=== PATIENT | male | born 1995 | race Caucasian/White ===

== ENCOUNTER 2021-11-10 18:23 | Emergency (ER) | payer BC, OTHER ==
[2021-11-10] MEDS ORDERED: Hydromorphone 1 mg/ml Injection IV ONE (18:51)
[2021-11-10] MEDS ORDERED: Zofran 4 MG/2 ML VIAL IV ONE (18:51)
[2021-11-10] MEDS ORDERED: Sodium Chloride 0.9% 1000 ML 1,000 ML IV STA (18:51)
--- NOTE | 2021-11-10 18:51 | ERPHSYRPT ---
- History of Present Illness Time Seen by Provider: 11/10/21 18:51 Historian: patient Exam Limitations: no limitations Patient Subjective Stated Complaint: PT REPORTS ABDOMINAL PAIN TO RIGHT LOWER QUADRANT THAT STARTED TODAY 11/10/21 AND NAUSEA Triage Nursing Assessment: PT REPORTS CONSTANT ABDOMINAL PAIN TO RLQ, TENDER WITH PALPATION, PT REPORTS NAUSEA BUT DENIES VOMITING, BOWEL MOVEMENT TODAY. PT STATES HE HAS BEEN HAVING HEADACHES INTERMITTENTLY OVER THE LAST WEEK AND THAT HE WAS EXPOSED TO COVID POSITIVE PERSONS AT WORK 7 DAYS AGO. PT STATES HE WAS TESTED FOR COVID 19 AT [facility] TODAY BUT STATES RESULTS WONT BE IN FOR 2-5 BUSINESS DAYS. Physician History: This is a 26-year-old white male patient of Dr. Leone who presents with right lower quadrant abdominal pain that began this morning and has worsened throughout the day. He has had nausea but no vomiting. He has no diarrhea symptoms. Patient has never had anything like this before. He has been exposed individuals with COVID-positive infection. He has had intermittent headaches over the last week. He denies cough. He denies neck pain. He has not had a fever. Patient has never had an abdominal surgery in the past. Activities at Onset: none Quality: aching Abdominal Pain Onset Location: RLQ Severity of Pain-Max: moderate Severity of Pain-Current: moderate Modifying Factors: Improves With: nothing Associated Symptoms: nausea Previous symptoms: no prior history Allergies/Adverse Reactions: amoxicillin [Amoxicillin] Adverse Reaction (Mild, Verified 11/10/21 18:40) Diarrhea Home Medications: No Home Meds [No Home Meds] 1 [facility] 04/03/15 [History] Hx Tetanus, Diphtheria Vaccination/Date Given: No Hx Influenza Vaccination/Date Given: No Hx Pneumococcal Vaccination/Date Given: No Immunizations Up to Date: No Travel Risk - International Travel Have you traveled outside of the country in past 3 weeks: No - Coronavirus Screening Are you exhibiting any of the following symptoms?: Yes Symptoms: Headaches/Body Aches/Fatigue Close contact with a COVID-19 positive Pt in past 14-21 Days: Yes - Vaccine Status Have you recieved a Covid-19 vaccination: No - Review of Systems Constitutional: No Symptoms Eyes: No Symptoms Ears, Nose, & Throat: No Symptoms Respiratory: No Symptoms Cardiac: No Symptoms Abdominal/Gastrointestinal: Abdominal Pain (Lower quadrant), Nausea, No Vomiting Genitourinary Symptoms: No Symptoms Musculoskeletal: No Symptoms Skin: No Symptoms Neurological: No Symptoms Psychological: No Symptoms Endocrine: No Symptoms Hematologic/Lymphatic: No Symptoms Immunological/Allergic: No Symptoms All Other Systems: Reviewed and Negative - Past Medical History Pertinent Past Medical History: Yes Neurological History: No Pertinent History ENT History: No Pertinent History Cardiac History: No Pertinent History Respiratory History: No Pertinent History Endocrine Medical History: No Pertinent History Musculoskeletal History: No Pertinent History GI Medical History: No Pertinent History History: No Pertinent History Psycho-Social History: No Pertinent History Male Reproductive Disorders: No Pertinent History Other Medical History: ANGER DISORDER - Past Surgical History Past Surgical History: No Neuro Surgical History: No Pertinent History Cardiac: No Pertinent History Respiratory: No Pertinent History Gastrointestinal: No Pertinent History Genitourinary: No Pertinent History Musculoskeletal: No Pertinent History Male Surgical History: No Pertinent History - Social History Smoking Status: Former smoker How long have you smoked: 5 yrs Exposure to second hand smoke: Yes Drug Use: none Patient Lives Alone: No - Nursing Vital Signs Nursing Vital Signs: Initial Vital Signs Temperature 97.9 F 11/10/21 18:28 Pulse Rate 62 11/10/21 18:28 Respiratory Rate 15 11/10/21 18:28 Blood Pressure 120/68 11/10/21 18:28 O2 Sat by Pulse Oximetry 98 11/10/21 18:28 Pain Scale Pain Intensity 3 - Physical Exam General Appearance: no apparent distress, alert, anxiety Eye Exam: PERRL/EOMI Ears, Nose, Throat Exam: normal ENT inspection, moist mucous membranes Neck Exam: normal inspection, non-tender, supple, full range of motion Respiratory Exam: normal breath sounds, lungs clear, airway intact, No chest tenderness, No respiratory distress Cardiovascular Exam: regular rate/rhythm, normal heart sounds, normal peripheral pulses Gastrointestinal/Abdomen Exam: soft, normal bowel sounds, tenderness (Right lower quadrant), guarding (Right lower quadrant) Rectal Exam: not done Back Exam: normal inspection, normal range of motion, No CVA tenderness, No vertebral tenderness Extremity Exam: normal inspection, normal range of motion, pelvis stable Neurologic Exam: alert, oriented x 3, cooperative, drug 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 II-XII nml as tested, normal mood/affect, nml cerebellar function, nml station & gait, sensation nml Skin Exam: normal color, warm, dry Lymphatic Exam: No adenopathy SpO2 Interpretation: normal SpO2: 98 O2 Delivery: Room Air - Course Nursing assessment & vital signs reviewed: Yes Ordered Tests: Active Orders 24 hr Category Date Time Status IV Insertion STAT Care 11/10/21 18:51 Active ABDOMEN AND PELVIS W/0 CONTRAS [CT] Stat Exams 11/10/21 18:53 Taken AMYLASE Stat Lab 11/10/21 18:30 Completed CBC W DIFF Stat Lab 11/10/21 18:30 Completed CMP Stat Lab 11/10/21 18:30 Completed LIPASE Stat Lab 11/10/21 18:30 Completed UA W/RFX CULTURE Stat Lab 11/10/21 18:55 Completed Medication Summary Discontinued Medications Generic Name Dose Route Start Last Admin Trade Name Freq PRN Reason Stop Dose Admin Hydromorphone HCl 1 mg 11/10/21 18:51 11/10/21 18:59 Hydromorphone 1 Mg/1ml Inj 1 Mg/Ml Syringe IV 11/10/21 18:52 1 mg STAT ONE Administration Hydromorphone HCl Confirm 11/10/21 18:56 Hydromorphone 1 Mg/1ml Inj 1 Mg/Ml Syringe Administered 11/10/21 18:57 Dose 1 mg .ROUTE .STK-MED ONE Sodium Chloride 1,000 mls @ 999 mls/hr 11/10/21 18:51 11/10/21 19:59 Sodium Chloride 0.9% 1000 Ml IV 11/10/21 19:51 Infused .Q1H1M STA Infusion Sodium Chloride Confirm 11/10/21 18:56 Sodium Chloride 0.9% 1000 Ml Administered 11/10/21 18:57 Dose 1,000 mls @ ud .ROUTE .STK-MED ONE Ondansetron HCl 4 mg 11/10/21 18:51 11/10/21 18:59 Ondansetron Hcl 4 Mg/2 Ml Vial IV 11/10/21 18:52 4 mg STAT ONE Administration Ondansetron HCl Confirm 11/10/21 18:56 Ondansetron Hcl 4 Mg/2 Ml Vial Administered 11/10/21 18:57 Dose 4 mg .ROUTE .STK-MED ONE Lab/Rad Data: Laboratory Result Diagrams 11/10/21 18:30 11/10/21 18:30 Laboratory Results 07/25/22 07/25/22 07/25/22 Range/Units 19:10 18:55 18:30 WBC (4.0-10.5) x10^3/uL RBC (4.1-5.6) x10^6/uL Hgb (12.5-18.0) g/dL Hct (42-50) % MCV (78-100) fL MCH (26-32) pg MCHC (32-36) g/dL RDW (11.5-14.0) % Plt Count (150-450) x10^3/uL MPV (7.5-11.0) fL Gran % (36.0-66.0) % Immature Gran % (Auto) (0.00-0.4) % Nucleat RBC Rel Count (0.00-0.1) % Eos # (Auto) (0-0.5) x10^3/uL Immature Gran # (Auto) (0.00-0.03) x10^3u/L Absolute Lymphs (auto) (1.0-4.6) x10^3/uL Absolute Monos (auto) (0.0-1.3) x10^3/uL Absolute Nucleated RBC (0.00-0.01) x10^3u/L Lymphocytes % (24.0-44.0) % Monocytes % (0.0-12.0) % Eosinophils % (0.00-5.0) % Basophils % (0.0-0.4) % Absolute Granulocytes (1.4-6.9) x10^3/uL Basophils # (0-0.4) x10^3/uL Sodium 139 (137-145) mmol/L Potassium 3.9 (3.5-5.1) mmol/L Chloride 102 (98-107) mmol/L Carbon Dioxide 28 (22-30) mmol/L Anion Gap 12.4 (5-15) MEQ/L BUN 8 L (9-20) mg/dL Creatinine 0.95 (0.66-1.25) mg/dL Estimated GFR > 60.0 ML/MIN Glucose 105 (74-106) mg/dL Calcium 9.0 (8.4-10.2) mg/dL Total Bilirubin 0.40 (0.2-1.3) mg/dL AST 38 (17-59) U/L ALT 44 (0-50) U/L Alkaline Phosphatase 73 (38-126) U/L Serum Total Protein 7.9 (6.3-8.2) g/dL Albumin 4.3 (3.5-5.0) g/dL Amylase 77 (30-110) U/L Lipase 73 (23-300) U/L Urinalys Dipstick Clnc MAIN LAB Urine Color YELLOW (YELLOW) Urine Appearance CLEAR (CLEAR) Urine pH 7.0 (5-6) Ur Specific Lucas 1.025 (1.005-1.025) POC Urine Protein Conf NEGATIVE (Negative) Urine Ketones NEGATIVE (NEGATIVE) Urine Nitrite NEGATIVE (NEGATIVE) Urine Bilirubin NEGATIVE (NEGATIVE) Urine Urobilinogen 0.2 (0-1) mg/dL Urine Leukocytes NEGATIVE (NEGATIVE) Urine WBC (Auto) 0-2 (0-5) /HPF Urine RBC (Auto) 0-2 (0-2) /HPF Urine RBC NEGATIVE (0-5) Rancho/ul Ur Culture Indicated? NO Urine Glucose NEGATIVE (NEGATIVE) mg/dL Influenza Type A Ag NEGATIVE (NEGATIVE) Influenza Type B Ag NEGATIVE (NEGATIVE) RSV (PCR) NEGATIVE (Negative) SARS-CoV-2 (PCR) NEGATIVE (NEGATIVE) 11/10/21 Range/Units 18:30 WBC 6.0 (4.0-10.5) x10^3/uL RBC 4.44 (4.1-5.6) x10^6/uL Hgb 13.9 (12.5-18.0) g/dL Hct 40.6 L (42-50) % MCV 91.4 (78-100) fL MCH 31.3 (26-32) pg MCHC 34.2 (32-36) g/dL RDW 12.6 (11.5-14.0) % Plt Count 259 (150-450) x10^3/uL MPV 9.7 (7.5-11.0) fL Gran % 56.0 (36.0-66.0) % Immature Gran % (Auto) 0.3 (0.00-0.4) % Nucleat RBC Rel Count 0.0 (0.00-0.1) % Eos # (Auto) 0.13 (0-0.5) x10^3/uL Immature Gran # (Auto) 0.02 (0.00-0.03) x10^3u/L Absolute Lymphs (auto) 2.06 (1.0-4.6) x10^3/uL Absolute Monos (auto) 0.39 (0.0-1.3) x10^3/uL Absolute Nucleated RBC 0.00 (0.00-0.01) x10^3u/L Lymphocytes % 34.2 (24.0-44.0) % Monocytes % 6.5 (0.0-12.0) % Eosinophils % 2.2 (0.00-5.0) % Basophils % 0.8 (0.0-0.4) % Absolute Granulocytes 3.37 (1.4-6.9) x10^3/uL Basophils # 0.05 (0-0.4) x10^3/uL Sodium (137-145) mmol/L Potassium (3.5-5.1) mmol/L Chloride (98-107) mmol/L Carbon Dioxide (22-30) mmol/L Anion Gap (5-15) MEQ/L BUN (9-20) mg/dL Creatinine (0.66-1.25) mg/dL Estimated GFR ML/MIN Glucose (74-106) mg/dL Calcium (8.4-10.2) mg/dL Total Bilirubin (0.2-1.3) mg/dL AST (17-59) U/L ALT (0-50) U/L Alkaline Phosphatase (38-126) U/L Serum Total Protein (6.3-8.2) g/dL Albumin (3.5-5.0) g/dL Amylase (30-110) U/L Lipase (23-300) U/L Urinalys Dipstick Clnc Urine Color (YELLOW) Urine Appearance (CLEAR) Urine pH (5-6) Ur Specific Lucas (1.005-1.025) POC Urine Protein Conf (Negative) Urine Ketones (NEGATIVE) Urine Nitrite (NEGATIVE) Urine Bilirubin (NEGATIVE) Urine Urobilinogen (0-1) mg/dL Urine Leukocytes (NEGATIVE) Urine WBC (Auto) (0-5) /HPF Urine RBC (Auto) (0-2) /HPF Urine RBC (0-5) Rancho/ul Ur Culture Indicated? Urine Glucose (NEGATIVE) mg/dL Influenza Type A Ag (NEGATIVE) Influenza Type B Ag (NEGATIVE) RSV (PCR) (Negative) SARS-CoV-2 (PCR) (NEGATIVE) - Progress Progress: improved, pain not gone completely, re-examined Progress Note: 11/10/21 20:22 CAT scan of the abdomen pelvis without contrast shows a normal appendix. There is diverticulosis present. No acute intra-abdominal or intrapelvic abnormalities. Counseled pt/family regarding: lab results, diagnosis, need for follow-up, rad results - Departure Departure Disposition: Home Clinical Impression: Abdominal pain Condition: Stable Critical Care Time: No Referrals: MARLENY ZHOU [ACTIVE STAFF] - Follow up/PCP as directed Additional Instructions: Drink plenty of clear liquids. Do not advance your diet until you are jen ating clear liquids well. Follow-up with your primary care physician for further evaluation and management. Prescriptions: Ondansetron ODT 4 MG [Zofran Odt 4 mg] 4 mg PO Q6H PRN PRN #10 tablet PRN Reason: Vomiting
[2021-11-10] MEDS ORDERED: Zofran 4 MG/2 ML VIAL ONE (18:56)
[2021-11-10] MEDS ORDERED: Hydromorphone 1 mg/ml Injection ONE (18:56)
[2021-11-10] MEDS ORDERED: Sodium Chloride 0.9% 1000 ML 1,000 ML ONE (18:56)
[2021-11-10 18:58] LABS: Absolute Neutrophil Ct (ANC) 3.37 x10^3/uL (1.4-6.9); Basophil (Absolute #) 0.05 x10^3/uL (0-0.4); Eosinophil % 2.2 % (0.00-5.0); Eosinophil (Absolute #) 0.13 x10^3/uL (0-0.5); Hematocrit 40.6 % (42-50); Hemoglobin 13.9 g/dL (12.5-18.0); Lymphocyte (Absolute #) 2.06 x10^3/uL (1.0-4.6); Lymphocytes % 34.2 % (24.0-44.0); Mean Cell Volume 91.4 fL (78-100); Mean Corpuscular Hemoglobin 31.3 pg (26-32); Mean Corpuscular Hgb Concent. 34.2 g/dL (32-36); Mean Platelet Volume 9.7 fL (7.5-11.0); Monocyte (Absolute #) 0.39 x10^3/uL (0.0-1.3); Monocytes % 6.5 % (0.0-12.0); Platelet Count 259 x10^3/uL (150-450); Red Blood Count 4.44 x10^6/uL (4.1-5.6); Red Cell Distribution Width 12.6 % (11.5-14.0)
[2021-11-10 19:05] LABS: ALBUMIN 4.3 g/dL (3.5-5.0); ALKALINE PHOSPHATASE 73 U/L (38-126); AMYLASE 77 U/L (30-110); ANION GAP 12.4 MEQ/L (5-15); BLOOD UREA NITROGEN 8 mg/dL (9-20); CHLORIDE 102 mmol/L (98-107); Carbon Dioxide 28 mmol/L (22-30); Creatinine 1 0.95 mg/dL (0.66-1.25); EST GLOMERULAR FILTRATION RATE > 60.0 ML/MIN; Glucose 105 mg/dL (74-106); LIPASE 73 U/L (23-300); Potassium 3.9 mmol/L (3.5-5.1); SGOT/AST 38 U/L (17-59); SGPT/ALT 44 U/L (0-50); SODIUM 139 mmol/L (137-145); Total Protein 7.9 g/dL (6.3-8.2)
[2021-11-10 19:10] LABS: RBC 0-2 /HPF (0-2); WBC 0-2 /HPF (0-5)
[2021-11-10 19:12] LABS: Appearance CLEAR (CLEAR); Bilirubin NEGATIVE (NEGATIVE); Glucose NEGATIVE (NEGATIVE); Ketones NEGATIVE (NEGATIVE); Nitrite NEGATIVE (NEGATIVE); Protein,Urine Dip NEGATIVE (Negative); RBC NEGATIVE Ery/ul (0-5); Specific Gravity 1.025 (1.005-1.025); Urine Cultured Indicated? NO; Urobilinogen 0.2 mg/dL (0-1)
[2021-11-10 19:13] LABS: Dipstick done @ ? MAIN LAB
[2021-11-10 19:43] LABS: INFLUENZA A NEGATIVE (NEGATIVE); INFLUENZA B NEGATIVE (NEGATIVE); RESPIRATORY SYNCTIAL VIRUS NEGATIVE (Negative); SARS-CoV-2 Xpert Express NEGATIVE (NEGATIVE)
[2021-11-10 20:55] VITALS: BP 112/68; PULSE 56; O2SAT 99
--- NOTE | 2021-11-11 16:00 | XRAY ---
Exam: CT of the abdomen and pelvis without IV contrast from 11/10/2021. CTDI: 10.56 mGy Comparison: CT of the abdomen and pelvis with IV contrast from 04/18/2012. Indication: Right lower quadrant abdominal pain; nausea. Technique: Non-IV contrast axial images were obtained through the abdomen and pelvis. Reconstructed coronal and sagittal images were created and reviewed. Findings: The visualized lung bases are clear except for minimal posterior dependent compression atelectasis at the right lung base. Assessment of the solid organs is limited without the use of IV contrast. Moderate food and perhaps some secretions are seen within the stomach lumen. The liver and spleen appear of normal size and uniform attenuation. No intrahepatic biliary duct distention is seen. The gallbladder demonstrates average distention and reveals no dense calcifications within it. The pancreas and adrenal glands appear unremarkable. The kidneys are of normal size and reveal no renal calculi or hydronephrosis. The ureters appear of normal diameter and reveal no definite ureterolith. No gross renal mass is seen. The abdominal aorta appears of normal diameter. No abnormal retroperitoneal lymphadenopathy is seen. There is no bowel containing ventral hernia or free intraperitoneal air. There is minimal protrusion of intra-abdominal fat into the subcutaneous fat at the level the umbilicus on midline sagittal image #105. Scattered stool is seen throughout the colon. Mild scattered colonic diverticulosis is seen without evidence of diverticulitis. The appendix is seen within the right lower quadrant and appears normal. The pelvis reveals an unremarkable appearance of the urinary bladder, seminal vesicles, and prostate gland. Some small scattered calcified phleboliths are seen bilaterally within the lower pelvis. The inguinal canals and femoral regions appear unremarkable. No other evidence of pelvic mass, abnormal pelvic lymphadenopathy, or free intraperitoneal fluid is seen. The skeleton reveals bilateral L5 spondylolysis with minimal 1-2 mm anterior spondylolisthesis of L5 over S1. No fracture or other aggressive bone lesion is seen. Impression: 1. The appendix is seen within the right lower quadrant and appears normal. No findings of appendicitis are seen. 2. I see no other evidence of acute intra-abdominal or pelvic process. 3. Scattered mild colonic diverticulosis without evidence of acute diverticulitis. 4. 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
== END 2021-11-10 21:02 | disposition home or self-care (01) ==
LOC: ED 18:23
DX: R10.31 Right lower quadrant pain (principal); R11.0 Nausea; R51.9 Headache, unspecified; Z28.310 Unvaccinated for COVID-19; Z20.822 Contact with and (suspected) exposure to COVID-19
CPT/HCPCS: 0241U; 36000; 36415; 74176; 80053; 81015; 82150; 83690; 85025; 96374; 96375; 99284; J1170; J2405

== ENCOUNTER 2021-11-18 05:49 | Day surgery (SDC) | payer BC, OTHER ==
[2021-11-18] MEDS ORDERED: Lactated Ringers 1,000 ML IV SCH (06:30)
[2021-11-18] MEDS ORDERED: DIPRIVAN 200 MG/20 ML IV ONE (07:26)
[2021-11-18] MEDS ORDERED: Xylocaine-Mpf 2% 5 Ml Vial ONE (07:26)
[2021-11-18 08:55] VITALS: O2SAT 97
[2021-11-18 09:11] VITALS: BP 113/65; PULSE 49
--- NOTE | 2021-11-18 09:26 | OP ---
SURGERY DATE/TIME: 11/18/2021 0725 PREOPERATIVE DIAGNOSIS: Rectal bleeding. POSTOPERATIVE DIAGNOSIS: Normal colon, mild hemorrhoids. PROCEDURE: Colonoscopy. SURGEON: Dr. Je Leone. ANESTHESIA: MAC. Medications given by anesthesia department. HISTORY: The patient is a 26-year-old white male patient presenting now for colonoscopic evaluation. The patient reports that he has had several episodes of rectal bleeding over the last few weeks and the patient was felt the need to have endoscopic evaluation. The patient was described the risks of the procedure including the risk of perforation, phlebitis, untoward reaction to medication, bleeding and missed lesions. The patient verbalized his understanding and desired to have the procedure performed. DESCRIPTION OF PROCEDURE: The patient was given the medications by the anesthesia department. He had continuous pulse oximetry, ECG monitoring, intermittent blood pressure monitoring during the examination. He was placed in the left lateral decubitus position. A digital rectal examination was performed and revealed mild hemorrhoids, no palpable masses, normal sphincter tone and normal prostate. The flexible Olympus pediatric colonoscope was used to intubate the rectum. A view of the colon was developed sequentially to the cecum including a short distance in the terminal ileum. Upon insertion and withdrawal, including a retroflex view in the rectum, no mucosal lesions were otherwise noted. The scope was removed from the patient who tolerated the procedure well and was sent back to OP recovery in good condition. The prep was noted to be fair to good.
== END 2021-11-18 09:13 | disposition home or self-care (01) ==
LOC: SDC 05:49
PROVIDERS: ATTEND Family Medicine
DX: K64.9 Unspecified hemorrhoids (principal); K62.5 Hemorrhage of anus and rectum
CPT/HCPCS: J2704

== ENCOUNTER 2022-01-25 17:10 | Emergency (ER) | payer BC, OTHER ==
[2022-01-25 17:46] VITALS: BP 132/89; PULSE 80; O2SAT 98
--- NOTE | 2022-01-25 17:51 | ERPHSYRPT ---
- History of Present Illness Time Seen by Provider: 01/25/22 17:48 Source: patient Exam Limitations: no limitations Patient Subjective Stated Complaint: "I punched a wall last night and have right hand and wrist pain" Triage Nursing Assessment: AAox3, walked in, c/o pain and swelling to right hand/wrist s/p punching wall last night. Denies other injuries, pleasant mood. Physician History: pt states did not hit any person and has no cuts on exam at knuckles. tender swollen right 4th and 5th MCPs and wrist. No other complaints of injuries. full ROM all ext.otherwise. chest and abd all nontender spine and head all nontender. No neuro findings. N/V intact. Occurred: just prior to arrival Method of Injury: direct blow Quality: constant Severity of Pain-Max: moderate Severity of Pain-Current: moderate Modifying Factors: Improves With: immobilization, movement Associated Symptoms: none Allergies/Adverse Reactions: amoxicillin [Amoxicillin] Adverse Reaction (Mild, Verified 11/18/21 06:28) Diarrhea Home Medications: No Reportable Medications [No Reported Medications] 11/17/21 [History] Hx Tetanus, Diphtheria Vaccination/Date Given: No Hx Influenza Vaccination/Date Given: No Hx Pneumococcal Vaccination/Date Given: No Immunizations Up to Date: Yes Travel Risk - International Travel Have you traveled outside of the country in past 3 weeks: No - Coronavirus Screening Are you exhibiting any of the following symptoms?: No Close contact with a COVID-19 positive Pt in past 14-21 Days: No - Vaccine Status Have you recieved a Covid-19 vaccination: No - Review of Systems Constitutional: No Fever, No Chills Eyes: No Symptoms Ears, Nose, & Throat: No Symptoms Respiratory: No Cough, No Dyspnea Cardiac: No Chest Pain, No Edema, No Syncope Abdominal/Gastrointestinal: No Abdominal Pain, No Nausea, No Vomiting, No Diarrhea Genitourinary Symptoms: No Dysuria Musculoskeletal: Injury, Joint Pain, Joint Swelling, No Back Pain, No Neck Pain Skin: No Symptoms, No Rash, No Skin Lesions Neurological: No Dizziness, No Focal Weakness, No Sensory Changes Psychological: No Symptoms Endocrine: No Symptoms Hematologic/Lymphatic: No Symptoms Immunological/Allergic: No Symptoms All Other Systems: Reviewed and Negative - Past Medical History Pertinent Past Medical History: Yes Neurological History: No Pertinent History ENT History: No Pertinent History Cardiac History: No Pertinent History Respiratory History: No Pertinent History Endocrine Medical History: No Pertinent History Musculoskeletal History: No Pertinent History GI Medical History: GERD History: No Pertinent History Psycho-Social History: No Pertinent History Male Reproductive Disorders: No Pertinent History Other Medical History: ANGER DISORDER,blood in stools - Past Surgical History Past Surgical History: No Neuro Surgical History: No Pertinent History Cardiac: No Pertinent History Respiratory: No Pertinent History Gastrointestinal: No Pertinent History Genitourinary: No Pertinent History Musculoskeletal: No Pertinent History Male Surgical History: No Pertinent History Other Surgical History: never had surgery - Social History Smoking Status: Never smoker How long have you smoked: 5 yrs Exposure to second hand smoke: Yes Drug Use: none Patient Lives Alone: Yes - Nursing Vital Signs Nursing Vital Signs: Initial Vital Signs Temperature 97.7 F 01/25/22 17:37 Pulse Rate 80 01/25/22 17:37 Blood Pressure 132/89 01/25/22 17:37 O2 Sat by Pulse Oximetry 98 01/25/22 17:37 Pain Scale Pain Intensity 7 - Physical Exam General Appearance: alert Eyes, Ears, Nose, Throat Exam: moist mucous membranes Neck Exam: non-tender, supple Cardiovascular/Respiratory Exam: chest non-tender, normal breath sounds, regular rate/rhythm, no respiratory distress, No palpable fracture, No rib tenderness, No subcutaneous emphysema Abdominal Exam: non-tender, No guarding, No tenderness Back Exam: normal inspection, normal range of motion, No vertebral tenderness Shoulder Exam: normal inspection, non-tender, no evidence of injury, normal ROM Elbow/Forearm Exam: normal inspection, non-tender, no evidence of injury, normal ROM Wrist Exam: pain, soft tissue tenderness Hand Exam: bone tenderness, deformity, limited ROM, swelling DTR - Upper Extremity Exam: bicep (R): 2+, bicep (L): 2+, tricep (R): 2+, tricep (L): 2+ Neuro/Tendon Exam: normal sensation, normal motor functions, normal tendon functions Mental Status Exam: alert, oriented x 3, cooperative Skin Exam: normal color, warm, dry SpO2 Interpretation: normal SpO2: 98 O2 Delivery: Room Air Procedures - Splinting Location of Splint: Right, Hand Type of Splint: Orthoglass Short Arm Splint Splint Applied By: ED Nurse Post-Proc Neuro Vasc Exam: neurovascular intact, unchanged from pre-exam - Course Nursing assessment & vital signs reviewed: Yes - Radiology Exams Right Hand X-ray Interpretation: Reviewed by me, Non-displaced Fracture (suspected right 4th met base) Right Wrist X-ray Interpretation: Reviewed by me, Other (no obvious fx seen) Ordered Tests: Active Orders 24 hr Category Date Time Status HAND (MINIMUM 3 VIEWS) Stat Exams 01/25/22 17:52 Taken WRIST (MIN 3 VIEWS) Stat Exams 01/25/22 17:53 Taken - Progress Progress: improved, re-examined Counseled pt/family regarding: diagnosis, need for follow-up, rad results - Departure Departure Disposition: Home Clinical Impression: right nondisplaced/occult fx 4th metacar Condition: Good Critical Care Time: No Referrals: DEE THURSTON [Primary Care Provider] - Follow up/PCP as directed Instructions: Hand Fracture (DC), Boxer's Fracture Additional Instructions: We believe there likely is a fracture at the base of the 4th finger in the hand, and there may be additional bone and ligament injuries there. Use ice and elevation, Motrin, tylenol and alleve for pain - see Ortho this week if possible and final x-ray report tomorrow.
--- NOTE | 2022-01-26 08:55 | XRAY ---
Indication: Pain following punching injury. Comparison: None 3 view right hand obtained. No bony, articular, or soft tissue abnormalities.
--- NOTE | 2022-01-26 08:55 | XRAY ---
Indication: Pain following punching injury. Comparison: None 3 view right wrist obtained. No bony, articular, or soft tissue abnormalities.
== END 2022-01-25 19:56 | disposition home or self-care (01) ==
LOC: ED 17:10
DX: S62.344A Nondisplaced fracture of base of fourth metacarpal bone, right hand, initial encounter for closed fracture (principal); W22.01XA Walked into wall, initial encounter; M25.531 Pain in right wrist; M79.641 Pain in right hand; Z28.310 Unvaccinated for COVID-19
CPT/HCPCS: 29125; 73110; 73130; 99283

== ENCOUNTER 2022-05-13 15:47 | Emergency (ER) | payer OTHER ==
[2022-05-13 16:04] VITALS: BP 116/75; PULSE 62; O2SAT 100
[2022-05-13] MEDS ORDERED: Adacel Vial IM ONE ×2 (16:10→16:14)
--- NOTE | 2022-05-13 16:30 | XRAY ---
Indication: Laceration. Comparison: None 3 view left thumb demonstrates distal soft tissue swelling/laceration with overlying bandage material. No other bony, articular, or soft tissue abnormalities.
[2022-05-13] MEDS ORDERED: NORCO 5/325 MG PO ONE (16:31)
[2022-05-13] MEDS ORDERED: NORCO 5/325 MG ONE (16:35)
--- NOTE | 2022-05-13 16:46 | ERPHSYRPT ---
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 Pt ambulates with an upright steady gait, able to speak in clear full sentences. PT cut the tip of his left thumb off, bleeding controlled with surgecell Physician History: Patient is here with distal left thumb amputation. Patient states that just prior to arrival he was at his job. 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 Patient states that he was cut by a clean knife. No other injuries. Timing/Duration: today Severity: mild Allergies/Adverse Reactions: amoxicillin [Amoxicillin] Adverse Reaction (Mild, Verified 11/18/21 06:28) Diarrhea Hx Tetanus, Diphtheria Vaccination/Date Given: No Hx Influenza Vaccination/Date Given: No Hx Pneumococcal Vaccination/Date Given: No Immunizations Up to Date: Yes Travel Risk - International Travel Have you traveled outside of the country in past 3 weeks: No - Coronavirus Screening Are you exhibiting any of the following symptoms?: No Close contact with a COVID-19 positive Pt in past 14-21 Days: No - Vaccine Status Have you recieved a Covid-19 vaccination: No - Review of Systems Constitutional: No Fever, No Chills Eyes: No Symptoms Ears, Nose, & Throat: No Symptoms Respiratory: No Cough, No Dyspnea Cardiac: No Chest Pain, No Edema, No Syncope Abdominal/Gastrointestinal: No Abdominal Pain, No Nausea, No Vomiting, No Diarrhea Genitourinary Symptoms: No Dysuria Musculoskeletal: Other (Left thumb distal fingertip amputation), No Back Pain, No Neck Pain Skin: No Rash Neurological: No Dizziness, No Focal Weakness, No Sensory Changes Psychological: No Symptoms Endocrine: No Symptoms All Other Systems: Reviewed and Negative - Past Medical History Pertinent Past Medical History: Yes Neurological History: No Pertinent History ENT History: No Pertinent History Cardiac History: No Pertinent History Respiratory History: No Pertinent History Endocrine Medical History: No Pertinent History Musculoskeletal History: No Pertinent History GI Medical History: GERD History: No Pertinent History Psycho-Social History: No Pertinent History Male Reproductive Disorders: No Pertinent History Other Medical History: ANGER DISORDER,blood in stools - Past Surgical History Past Surgical History: No Neuro Surgical History: No Pertinent History Cardiac: No Pertinent History Respiratory: No Pertinent History Gastrointestinal: No Pertinent History Genitourinary: No Pertinent History Musculoskeletal: No Pertinent History Male Surgical History: No Pertinent History Other Surgical History: never had surgery - Social History Smoking Status: Never smoker How long have you smoked: 5 yrs Exposure to second hand smoke: Yes Drug Use: none Patient Lives Alone: Yes - Nursing Vital Signs Nursing Vital Signs: Initial Vital Signs Temperature 97.7 F 05/13/22 15:58 Pulse Rate 62 05/13/22 15:58 Respiratory Rate 20 05/13/22 15:58 Blood Pressure 116/75 05/13/22 15:58 O2 Sat by Pulse Oximetry 100 05/13/22 15:58 Pain Scale Pain Intensity 7 - Physical Exam General Appearance: no apparent distress, alert Eye Exam: PERRL/EOMI, eyes nml inspection Ears, Nose, Throat Exam: normal ENT inspection, TMs normal, pharynx normal, moist mucous membranes Neck Exam: normal inspection, non-tender, supple, full range of motion Respiratory Exam: normal breath sounds, lungs clear, No respiratory distress Cardiovascular Exam: regular rate/rhythm, normal heart sounds, normal peripheral pulses Gastrointestinal/Abdomen Exam: soft, normal bowel sounds, No tenderness, No mass Back Exam: normal inspection, normal range of motion, No CVA tenderness, No vertebral tenderness Extremity Exam: normal inspection, normal range of motion, pelvis stable, other Neurologic Exam: alert, oriented x 3, cooperative, normal mood/affect, nml cerebellar function, nml station & gait, sensation nml, No motor deficits Skin Exam: normal color, warm, dry, No rash Lymphatic Exam: No adenopathy SpO2 Interpretation: normal SpO2: 100 Comments: 05/13/22 17:29 Left thumb demonstrates partial left distal finger amputation. No survivable tissue to suture. No signs of bone, other deeper, tendon injury. sensation intact, 2+ capillary refill, 2 point tactile discrimination intact. 5 out of 5 strength. Full range of motion without pain. Compartments are soft, nontender. Overlying skin shows no tenting, bruising, ecchymosis. - Course Nursing assessment & vital signs reviewed: Yes Ordered Tests: Active Orders 24 hr Category Date Time Status FINGER(S) Stat Exams 05/13/22 16:09 Completed Medication Summary Discontinued Medications Generic Name Dose Route Start Last Admin Trade Name Freq PRN Reason Stop Dose Admin Hydrocodone Bitart/Acetaminophen 1 tab 05/13/22 16:31 05/13/22 16:37 Hydrocodone/Apap 5/325 1 Tab Tablet PO 05/13/22 16:32 1 tab STAT ONE Administration Hydrocodone Bitart/Acetaminophen Confirm 05/13/22 16:35 Hydrocodone/Apap 5/325 1 Tab Tablet Administered 05/13/22 16:36 Dose 1 tab .ROUTE .STK-MED ONE Diphtheria/Tetanus/Acell Pertussis 0.5 ml 05/13/22 16:10 05/13/22 16:20 Tdap --Diph,Pertuss(Acell),Tet Vac/Pf 0.5 Ml Vial IM 05/13/22 16:11 0.5 ml .ONCE ONE Administration Diphtheria/Tetanus/Acell Pertussis Confirm 05/13/22 16:14 Tdap --Diph,Pertuss(Acell),Tet Vac/Pf 0.5 Ml Vial Administered 05/13/22 16:15 Dose 0.5 ml IM .STK-MED ONE - Progress Progress: improved Progress Note: 05/13/22 17:34 X-ray shows no signs of fracture, deeper tissue injury. Bleeding well controlled with Surgicel, Coban wrap. Patient's tetanus shot was updated, oral pain medication given. Plan for discharge home at this point time. Close follow-up with Ortho. We will allow wound to heal by secondary intention. Plan for discharge home. Counseled pt/family regarding: diagnosis, need for follow-up, rad results - Departure Departure Disposition: Home Clinical Impression: Finger amputation, traumatic Condition: Stable Critical Care Time: No Referrals: DEE THURSTON [Primary Care Provider] - Follow up/PCP as directed Instructions: Wound Care (DC) Prescriptions: Cephalexin Mh 500 mg [Keflex 500 mg] 500 mg PO BID #20 cap
== END 2022-05-13 16:56 | disposition home or self-care (01) ==
LOC: ED 15:47
DX: S68.012A Complete traumatic metacarpophalangeal amputation of left thumb, initial encounter (principal); W26.0XXA Contact with knife, initial encounter; Y93.G1 Activity, food preparation and clean up; Y92.513 Shop (commercial) as the place of occurrence of the external cause; Y99.0 Civilian activity done for income or pay; Z28.310 Unvaccinated for COVID-19
CPT/HCPCS: 73140; 90471; 90715; 99283; A9270-GY